=== PATIENT | female | born 2000 | race Hispanic/Latino ===

== ENCOUNTER 2018-01-02 20:32 | Outpatient (CLI) | payer MEDICAID ==
[2018-01-02] MEDS ORDERED: LACTATED RINGERS 1,000 ML IV ONE (21:05)
[2018-01-02 21:22] VITALS: BP 97/54
[2018-01-02 21:44] LABS: Bilirubin,Urine NEG (Negative); Blood,Urine LG (Negative); Color,Urine Yellow (Yellow); Mucus,Urine FEW /HPF
[2018-01-02 21:56] LABS: RBC,Urine > 182.0 /HPF (0.0-6.0)
[2018-01-02] MEDS ORDERED: ROCEPHIN 500 MG in NACL 0.9% 50 ML IV SCH (22:00)
[2018-01-02] MEDS ORDERED: ZOFRAN IV ONE (22:06)
[2018-01-02] MEDS ORDERED: LACTATED RINGERS 1,000 ML IV SCH (23:00)
== END 2018-01-03 00:36 | disposition home or self-care (01) ==
LOC: TRG 20:32
PROVIDERS: ATTEND Obstetrics & Gynecology
DX: O47.03 False labor before 37 completed weeks of gestation, third trimester (principal); O99.333 Smoking (tobacco) complicating pregnancy, third trimester; Z3A.28 28 weeks gestation of pregnancy
CPT/HCPCS: 36415; 59025; 81001; 82731; 87086; 96360; J0696; J2405; J7120

== ENCOUNTER 2018-01-19 00:01 | Outpatient (CLI) | payer MEDICAID ==
[2018-01-19 00:28] VITALS: BP 96/58
[2018-01-19] MEDS ORDERED: LACTATED RINGERS 1,000 ML IV ONE (00:33)
[2018-01-19 00:55] LABS: Bilirubin,Urine NEG (Negative); Blood,Urine LG (Negative); Color,Urine Yellow (Yellow); Protein,Urine <15 mg/dL mg/dL (Negative); Urobilinogen,Urine < 2.0 mg/dL (<2.0)
[2018-01-19 00:58] LABS: RBC,Urine > 182.0 /HPF (0.0-6.0); WBC,Urine < 1.0 /HPF (0.0-6.0)
== END 2018-01-19 01:45 | disposition home or self-care (01) ==
LOC: TRG 00:01
PROVIDERS: ATTEND Obstetrics & Gynecology
DX: O47.03 False labor before 37 completed weeks of gestation, third trimester (principal); O99.333 Smoking (tobacco) complicating pregnancy, third trimester; Z3A.30 30 weeks gestation of pregnancy
CPT/HCPCS: 59025; 81001; 96360; J7120

== ENCOUNTER 2018-03-14 12:33 | Outpatient (CLI) | payer MEDICAID ==
[2018-03-14 13:01] LABS: Color,Urine Yellow (Yellow)
[2018-03-14 13:02] VITALS: BP 97/50
[2018-03-14 13:02] LABS: Bacteria,Urine 1+ /HPF (Negative); Bilirubin,Urine NEG (Negative); Blood,Urine NEG (Negative); Protein,Urine <15 mg/dL mg/dL (Negative); RBC,Urine < 1.0 /HPF (0.0-6.0)
[2018-03-14 14:00] LABS: Hematocrit 30.1 % (30.3-42.9); Hemoglobin 9.6 gm/dl (10.1-14.3); Mean Corpuscular HGB Conc 32 % (30-34); Mean Corpuscular Hemoglobin 27 pg (28-32); Mean Corpuscular Volume 83 fl (79-97); Platelet Count 172 K/mm3 (140-440); Red Blood Count 3.64 M/mm3 (3.65-5.03); Red Cell Distribution Width 15.2 % (13.2-15.2)
[2018-03-14 14:01] LABS: Alanine Aminotransferase 9 units/L (7-56); Uric Acid 3.1 mg/dL (3.5-7.6)
--- NOTE | 2018-03-14 14:24 | Ultrasound Report ---
FINAL REPORT PROCEDURE: US ABDOMEN LIMITED TECHNIQUE: Real-time sonography in multiple planes of the gallbladder fossa and CBD with imaging of the adjacent liver, pancreas, and right kidney was performed with image documentation. CPT 45148 HISTORY: acute RUQ paon COMPARISON: No prior studies are available for comparison. FINDINGS: Liver: Normal size and echotexture with no evidence of cystic or solid mass lesion. Gallbladder: Fluid filled. No gallstones, wall thickening, pericholecystic fluid, or sonographic Goodwin's sign . Intrahepatic bile ducts: Normal . Extrahepatic bile ducts: Common bile duct measures 4 millimeters in caliber. Pancreas: Not fully visualized. Right kidney: There is moderate right hydronephrosis. Other: No free fluid. IMPRESSION: No sonographic evidence of cholelithiasis or cholecystitis. Moderate right hydronephrosis
== END 2018-03-14 14:20 | disposition home or self-care (01) ==
LOC: TRG 12:33
PROVIDERS: ATTEND Obstetrics & Gynecology
DX: O47.1 False labor at or after 37 completed weeks of gestation (principal); Z3A.38 38 weeks gestation of pregnancy; Z87.891 Personal history of nicotine dependence
CPT/HCPCS: 36415; 59025; 76705; 81001; 82565; 83615; 84450; 84460; 84550; 85027